=== PATIENT | female | born 1995 | race Two or more races ===

== ENCOUNTER 2018-12-21 11:34 | Emergency (ER) | payer MEDICAID ==
[~2018-12-21] VITALS: Ht 167.6 cm; Wt 89.8 kg
[2018-12-21 12:27] LABS: Urine Amorphous Crystal FEW /hpf (None Seen); Urine Bacteria FEW /hpf (None Seen); Urine Blood Negative /uL (Negative); Urine Mucus FEW (None Seen); Urine Specific Gravity 1.031 (1.001-1.035); Urine WBC 12 /hpf (0 - 5)
[2018-12-21 13:22] LABS: Basophils # (auto) 0 uL; Basophils % (auto) 0.4 % (0.0-2.0); Eosinophils # (auto) 0.1 uL; Eosinophils % (auto) 2.3 % (0.0-7.0); Hematocrit 37.5 % (36.0-46.0); Hemoglobin 12.5 g/dL (12.2-16.2); Lymphocytes # (auto) 2.4 uL; Lymphocytes % (auto) 40.1 % (10.0-50.0); Mean Corpuscular Hemoglobin 30.3 pg (28.0-32.0); Mean Corpuscular Hgb Conc. 33.4 g/dL (32.0-36.0); Mean Corpuscular Volume 90.9 fL (80.0-100.0); Monocytes # (auto) 0.6 uL; Monocytes % (auto) 9.8 % (0.0-12.0); Neutrophils # (auto) 2.8 uL; Neutrophils % (auto) 47.4 % (37.0-80.0); Nucleated Red Blood Cells % 0.1 %; Platelet Count (auto) 184 10^3/uL (140-450); Red Blood Cells 4.13 10^6/uL (4.0-5.20); Red Cell Distribution Width 13.3 % (11.8-14.3)
[2018-12-21] MEDS ORDERED: LIDOCAINE 1% HCL (LOCAL ANESTH.) INJ 20ML MDV ONE (13:29)
[2018-12-21] MEDS ORDERED: LIDOCAINE 1% HCL (LOCAL ANESTH.) INJ 20ML MDV ID ONE (13:30)
[2018-12-21 13:57] LABS: Albumin 3.7 g/dL (3.4-5.0); BUN/Creatinine Ratio 13.1; Calcium 8.4 mg/dL (8.5-10.1); Potassium 4.3 mmol/L (3.5-5.1)
[2018-12-21 14:00] VITALS: BP 121/70
[2018-12-21 14:00] LABS: Bilirubin, Total 0.3 mg/dL (0.2-1.0)
== END 2018-12-21 14:27 | disposition home or self-care (01) ==
LOC: ER 11:40
DX: L02.212 Cutaneous abscess of back [any part, except buttock and flank] (principal)
CPT/HCPCS: 10160; 36415; 80053; 81001; 81025; 85025; 99284; J2001; 10060

== ENCOUNTER 2018-12-22 21:14 | Emergency (ER) | payer MEDICAID ==
[~2018-12-22] VITALS: Ht 167.6 cm; Wt 89.8 kg
[2018-12-23 04:53] VITALS: BP 148/95
== END 2018-12-23 05:49 | disposition home or self-care (01) ==
LOC: ER 21:22
DX: R51 Headache (principal)
CPT/HCPCS: 70450

== ENCOUNTER 2019-03-02 12:59 | Emergency (ER) | payer MEDICAID ==
[2019-03-02 13:39] LABS: Basophils # (auto) 0 uL; Basophils % (auto) 0.3 % (0.0-2.0); Eosinophils # (auto) 0.1 uL; Hemoglobin 13.6 g/dL (12.2-16.2); Lymphocytes # (auto) 2.3 uL; Lymphocytes % (auto) 34.7 % (10.0-50.0); Mean Corpuscular Hemoglobin 30.8 pg (28.0-32.0); Mean Corpuscular Hgb Conc. 34.8 g/dL (32.0-36.0); Mean Corpuscular Volume 88.3 fL (80.0-100.0); Monocytes # (auto) 0.6 uL; Monocytes % (auto) 8.8 % (0.0-12.0); Neutrophils # (auto) 3.6 uL; Neutrophils % (auto) 54.2 % (37.0-80.0); Platelet Count (auto) 203 10^3/uL (140-450); Red Blood Cells 4.42 10^6/uL (4.0-5.20); Red Cell Distribution Width 13.2 % (11.8-14.3); White Blood Cell 6.6 10^3/uL (4.4-10.8)
[2019-03-02 13:53] LABS: Urine Bacteria FEW /hpf (None Seen); Urine Blood 3+ /uL (Negative); Urine Budding Yeast OCCASIONAL /hpf (None Seen); Urine Mucus FEW (None Seen); Urine Specific Gravity 1.024 (1.001-1.035); Urine WBC 11 /hpf (0 - 5)
[2019-03-02 13:59] LABS: Calcium 8.6 mg/dL (8.5-10.1)
[2019-03-02 14:03] LABS: Bilirubin, Total 0.2 mg/dL (0.2-1.0)
[2019-03-02 14:42] VITALS: BP 110/75
== END 2019-03-02 14:45 | disposition home or self-care (01) ==
LOC: ER 13:02
DX: N39.0 Urinary tract infection, site not specified (principal)
CPT/HCPCS: 36415; 80053; 81001; 85025

== ENCOUNTER 2019-05-14 08:53 | Emergency (ER) | payer MEDICAID ==
[~2019-05-14] VITALS: Ht 167.6 cm; Wt 95.3 kg
[2019-05-14 11:13] LABS: Basophils # (auto) 0 uL; Basophils % (auto) 0.4 % (0.0-2.0); Eosinophils # (auto) 0.1 uL; Eosinophils % (auto) 0.9 % (0.0-7.0); Hemoglobin 13.5 g/dL (12.2-16.2); Lymphocytes # (auto) 1.7 uL; Lymphocytes % (auto) 27.8 % (10.0-50.0); Mean Corpuscular Hemoglobin 31.1 pg (28.0-32.0); Mean Corpuscular Hgb Conc. 33.6 g/dL (32.0-36.0); Mean Corpuscular Volume 92.3 fL (80.0-100.0); Monocytes # (auto) 0.5 uL; Monocytes % (auto) 7.5 % (0.0-12.0); Neutrophils # (auto) 3.8 uL; Neutrophils % (auto) 63.4 % (37.0-80.0); Nucleated Red Blood Cells % 0.1 %; Platelet Count (auto) 192 10^3/uL (140-450); Red Blood Cells 4.34 10^6/uL (4.0-5.20); Red Cell Distribution Width 13.7 % (11.8-14.3); White Blood Cell 6.1 10^3/uL (4.4-10.8)
[2019-05-14 13:05] VITALS: BP 127/73
== END 2019-05-14 13:12 | disposition home or self-care (01) ==
LOC: ER 08:53
DX: O26.891 Other specified pregnancy related conditions, first trimester (principal); R10.2 Pelvic and perineal pain; Z3A.01 Less than 8 weeks gestation of pregnancy
CPT/HCPCS: 36415; 76801; 81002; 81025; 84702; 85025

== ENCOUNTER 2019-11-26 11:15 | Observation (INO) | payer MEDICAID ==
[2019-11-26 14:45] LABS: Albumin 2.7 g/dL (3.4-5.0); Calcium 8.3 mg/dL (8.5-10.1); Potassium 3.9 mmol/L (3.5-5.1)
[2019-11-26 14:49] LABS: BUN/Creatinine Ratio 8.8; Bilirubin, Total 0.4 mg/dL (0.2-1.0); Total Protein 6.7 g/dL (6.4-8.2)
[2019-11-26 14:53] LABS: Urine Bacteria None Seen /hpf (None Seen); Urine WBC None Seen /hpf (0 - 5)
[2019-11-26 14:57] LABS: Basophils # (auto) 0 10 ^3/uL (0-0.2); Basophils % (auto) 0.2 % (0.0-2.0); Eosinophils # (auto) 0.1 10 ^3/uL (0-0.8); Eosinophils % (auto) 0.9 % (0.0-7.0); Hematocrit 35.6 % (36.0-46.0); Hemoglobin 11.7 g/dL (12.2-16.2); Lymphocytes # (auto) 1.2 10 ^3/uL (0.4-5.4); Lymphocytes % (auto) 14.8 % (10.0-50.0); Mean Corpuscular Hemoglobin 30.8 pg (28.0-32.0); Mean Corpuscular Hgb Conc. 32.9 g/dL (32.0-36.0); Mean Corpuscular Volume 93.6 fL (80.0-100.0); Monocytes # (auto) 0.6 10 ^3/uL (0-1.3); Monocytes % (auto) 7.3 % (0.0-12.0); Neutrophils # (auto) 6.1 10 ^3/uL (1.6-8.6); Neutrophils % (auto) 76.8 % (37.0-80.0); Nucleated Red Blood Cells % 0.1 %; Platelet Count (auto) 198 10^3/uL (140-450); Red Cell Distribution Width 12.7 % (11.8-14.3); White Blood Cell 7.9 10^3/uL (4.4-10.8)
[2019-11-26 14:58] LABS: INR 0.93 (0.9-1.15); Partial Thromboplastin Time 28.8 sec (23.0-31.2)
[2019-11-26 16:27] LABS: Urine Specific Gravity 1.005 (1.001-1.035)
[2019-11-26 16:28] LABS: Urine Blood Negative /uL (Negative)
== END 2019-11-26 16:43 | disposition home or self-care (01) ==
LOC: LDRP 11:15
PROVIDERS: ADMIT Obstetrics & Gynecology; ATTEND Obstetrics & Gynecology
DX: O13.3 Gestational [pregnancy-induced] hypertension without significant proteinuria, third trimester (principal); Z3A.34 34 weeks gestation of pregnancy
CPT/HCPCS: 36415; 59025; 76805; 80053; 81001; 81002; 84550; 85025; 85610; 85730; G0378

== ENCOUNTER 2019-11-28 09:00 | Observation (INO) | payer MEDICAID ==
[2019-11-28] MEDS ORDERED: PREN-96 PO (09:41)
[2019-11-28 10:01] LABS: Protein, Urine 20.8 mg/dL (0.0-11.9)
== END 2019-11-28 11:10 | disposition home or self-care (01) ==
LOC: LDRP 09:00
PROVIDERS: ADMIT Specialist; ATTEND Specialist
DX: O13.3 Gestational [pregnancy-induced] hypertension without significant proteinuria, third trimester (principal); Z90.5 Acquired absence of kidney; Z3A.34 34 weeks gestation of pregnancy
CPT/HCPCS: 59025; 81002; 82570; 84156; G0378

== ENCOUNTER 2019-11-30 19:54 | Observation (INO) | payer MEDICAID ==
[~2019-11-30 19:54] MED LIST: PREN-96 PO
[2019-11-30 22:28] LABS: Basophils # (auto) 0 10 ^3/uL (0-0.2); Basophils % (auto) 0.4 % (0.0-2.0); Eosinophils # (auto) 0.1 10 ^3/uL (0-0.8); Hematocrit 33.6 % (36.0-46.0); Hemoglobin 11.3 g/dL (12.2-16.2); Lymphocytes # (auto) 1.8 10 ^3/uL (0.4-5.4); Lymphocytes % (auto) 22.1 % (10.0-50.0); Mean Corpuscular Hgb Conc. 33.6 g/dL (32.0-36.0); Mean Corpuscular Volume 92.4 fL (80.0-100.0); Monocytes # (auto) 0.8 10 ^3/uL (0-1.3); Monocytes % (auto) 10.2 % (0.0-12.0); Neutrophils # (auto) 5.5 10 ^3/uL (1.6-8.6); Neutrophils % (auto) 66.3 % (37.0-80.0); Platelet Count (auto) 204 10^3/uL (140-450); Red Blood Cells 3.64 10^6/uL (4.0-5.20); Red Cell Distribution Width 12.4 % (11.8-14.3); White Blood Cell 8.2 10^3/uL (4.4-10.8)
[2019-11-30 22:43] LABS: Potassium 3.6 mmol/L (3.5-5.1)
[2019-11-30 22:48] LABS: Urine Bacteria NONE SEEN /hpf (None Seen); Urine Blood Negative /uL (Negative); Urine Mucus FEW (None Seen); Urine Specific Gravity 1.024 (1.001-1.035); Urine WBC 16 /hpf (0 - 5)
[2019-11-30 22:52] LABS: Albumin 2.6 g/dL (3.4-5.0); BUN/Creatinine Ratio 10.5; Bilirubin, Total 0.2 mg/dL (0.2-1.0); Calcium 8.5 mg/dL (8.5-10.1); Total Protein 6.6 g/dL (6.4-8.2); Uric Acid 3.6 mg/dL (2.6-6.0)
[2019-11-30 22:59] LABS: INR 0.93 (0.9-1.15); Partial Thromboplastin Time 26.5 sec (23.0-31.2)
== END 2019-11-30 23:38 | disposition home or self-care (01) ==
LOC: LDRP 19:54
PROVIDERS: ADMIT Specialist; ATTEND Specialist
DX: O13.3 Gestational [pregnancy-induced] hypertension without significant proteinuria, third trimester (principal); Z3A.35 35 weeks gestation of pregnancy
CPT/HCPCS: 36415; 59025; 76818; 80053; 81001; 81002; 84550; 85025; 85379; 85384; 85610; 85730; G0378

== ENCOUNTER 2019-12-03 09:52 | Observation (INO) | payer MEDICAID ==
[2019-12-03 11:45] LABS: Basophils # (auto) 0 10 ^3/uL (0-0.2); Basophils % (auto) 0.3 % (0.0-2.0); Eosinophils # (auto) 0 10 ^3/uL (0-0.8); Eosinophils % (auto) 0.3 % (0.0-7.0); Hematocrit 35.8 % (36.0-46.0); Hemoglobin 12.3 g/dL (12.2-16.2); Lymphocytes # (auto) 1.5 10 ^3/uL (0.4-5.4); Lymphocytes % (auto) 16.4 % (10.0-50.0); Mean Corpuscular Hemoglobin 31.6 pg (28.0-32.0); Mean Corpuscular Hgb Conc. 34.4 g/dL (32.0-36.0); Mean Corpuscular Volume 91.7 fL (80.0-100.0); Monocytes # (auto) 0.5 10 ^3/uL (0-1.3); Monocytes % (auto) 5.9 % (0.0-12.0); Neutrophils # (auto) 6.8 10 ^3/uL (1.6-8.6); Neutrophils % (auto) 77.1 % (37.0-80.0); Platelet Count (auto) 205 10^3/uL (140-450); Red Cell Distribution Width 12.6 % (11.8-14.3); White Blood Cell 8.9 10^3/uL (4.4-10.8)
[2019-12-03 12:09] LABS: Albumin 2.8 g/dL (3.4-5.0); Calcium 8.4 mg/dL (8.5-10.1); Potassium 3.8 mmol/L (3.5-5.1)
[2019-12-03 12:12] LABS: BUN/Creatinine Ratio 7.6; Bilirubin, Total 0.4 mg/dL (0.2-1.0); Total Protein 7.2 g/dL (6.4-8.2)
[2019-12-04 05:11] LABS: RPR Non Reactive (Non Reactive)
== END 2019-12-03 12:55 | disposition home or self-care (01) ==
LOC: LDRP 09:52
PROVIDERS: ADMIT Specialist; ATTEND Specialist
DX: O13.3 Gestational [pregnancy-induced] hypertension without significant proteinuria, third trimester (principal); Z3A.35 35 weeks gestation of pregnancy
CPT/HCPCS: 36415; 59025; 76818; 80053; 81002; 85025; 86592; G0378

== ENCOUNTER 2019-12-06 11:55 | Observation (INO) | payer MEDICAID ==
[2019-12-06 12:54] LABS: Basophils # (auto) 0 10 ^3/uL (0-0.2); Basophils % (auto) 0.1 % (0.0-2.0); Eosinophils # (auto) 0 10 ^3/uL (0-0.8); Eosinophils % (auto) 0.4 % (0.0-7.0); Hematocrit 34.1 % (36.0-46.0); Hemoglobin 11.5 g/dL (12.2-16.2); Lymphocytes # (auto) 1.5 10 ^3/uL (0.4-5.4); Mean Corpuscular Hemoglobin 31.3 pg (28.0-32.0); Mean Corpuscular Hgb Conc. 33.7 g/dL (32.0-36.0); Mean Corpuscular Volume 92.8 fL (80.0-100.0); Monocytes # (auto) 0.5 10 ^3/uL (0-1.3); Monocytes % (auto) 6.5 % (0.0-12.0); Neutrophils # (auto) 6.1 10 ^3/uL (1.6-8.6); Platelet Count (auto) 192 10^3/uL (140-450); Red Blood Cells 3.68 10^6/uL (4.0-5.20); Red Cell Distribution Width 12.6 % (11.8-14.3); White Blood Cell 8.1 10^3/uL (4.4-10.8)
[2019-12-06 13:00] LABS: Urine Bacteria NONE SEEN /hpf (None Seen); Urine Blood Negative /uL (Negative); Urine Mucus FEW (None Seen); Urine Specific Gravity 1.015 (1.001-1.035); Urine WBC 2 /hpf (0 - 5)
[2019-12-06 13:09] LABS: INR 0.94 (0.9-1.15); Partial Thromboplastin Time 27.1 sec (23.0-31.2)
[2019-12-06 13:10] LABS: Potassium 3.9 mmol/L (3.5-5.1)
[2019-12-06 13:14] LABS: Protein, Urine 26.1 mg/dL (0.0-11.9)
[2019-12-06 13:19] LABS: Albumin 2.6 g/dL (3.4-5.0); BUN/Creatinine Ratio 10.7; Bilirubin, Total 0.3 mg/dL (0.2-1.0); Calcium 8.2 mg/dL (8.5-10.1); Total Protein 6.7 g/dL (6.4-8.2); Uric Acid 3.7 mg/dL (2.6-6.0)
== END 2019-12-06 14:00 | disposition home or self-care (01) ==
LOC: LDRP 11:55
PROVIDERS: ADMIT Specialist; ATTEND Specialist
DX: O13.3 Gestational [pregnancy-induced] hypertension without significant proteinuria, third trimester (principal); Z3A.35 35 weeks gestation of pregnancy
CPT/HCPCS: 36415; 59025; 76818; 80053; 81001; 81002; 82570; 84156; 84550; 85025; 85362; 85379; 85610; 85730; G0378

== ENCOUNTER 2019-12-07 23:05 | Observation (INO) | payer MEDICAID | END 2019-12-08 00:44 | disposition home or self-care (01) | LOC: LDRP 23:05 | PROVIDERS: ADMIT Specialist; ATTEND Specialist | DX: O42.913 Preterm premature rupture of membranes, unspecified as to length of time between rupture and onset of labor, third trimester (principal); Z3A.36 36 weeks gestation of pregnancy | CPT/HCPCS: 59025; 81002; 84112; G0378; Q0114 ==

== ENCOUNTER 2019-12-08 08:13 | Observation (INO) | payer MEDICAID | END 2019-12-08 09:35 | disposition home or self-care (01) | LOC: LDRP 08:13 | PROVIDERS: ADMIT Obstetrics & Gynecology; ATTEND Obstetrics & Gynecology | DX: O42.913 Preterm premature rupture of membranes, unspecified as to length of time between rupture and onset of labor, third trimester (principal); Z3A.36 36 weeks gestation of pregnancy | CPT/HCPCS: 59025; 76818; 81002; G0378 ==

== ENCOUNTER 2019-12-11 08:10 | Observation (INO) | payer MEDICAID ==
[~2019-12-11] VITALS: Ht 167.6 cm; Wt 99.8 kg
[2019-12-11 09:02] LABS: Protein, Urine 17.7 mg/dL (0.0-11.9)
[2019-12-11 09:06] LABS: 24 Hr. Total Protein, Urine 371.7 mg/24 Hr (<149.1)
== END 2019-12-11 09:25 | disposition home or self-care (01) ==
LOC: LDRP 08:10
PROVIDERS: ADMIT Specialist; ATTEND Specialist
DX: O13.3 Gestational [pregnancy-induced] hypertension without significant proteinuria, third trimester (principal); O62.9 Abnormality of forces of labor, unspecified; O26.893 Other specified pregnancy related conditions, third trimester; Q60.0 Renal agenesis, unilateral; Z3A.36 36 weeks gestation of pregnancy
CPT/HCPCS: 59025; 76818; 81002; 82570; 84156; G0378

== ENCOUNTER 2019-12-15 10:06 | Observation (INO) | payer MEDICAID | END 2019-12-15 11:50 | disposition home or self-care (01) | LOC: LDRP 10:06 | PROVIDERS: ADMIT Obstetrics & Gynecology; ATTEND Obstetrics & Gynecology | DX: O13.3 Gestational [pregnancy-induced] hypertension without significant proteinuria, third trimester (principal); Z90.5 Acquired absence of kidney; Z91.040 Latex allergy status; Z3A.37 37 weeks gestation of pregnancy | CPT/HCPCS: 59025; 76818; 81002; G0378 ==

== ENCOUNTER 2019-12-18 08:08 | Observation (INO) | payer MEDICAID ==
[2019-12-18 10:12] LABS: Protein, Urine 14.8 mg/dL (0.0-11.9)
[2019-12-18 10:15] LABS: Urine Bacteria NONE SEEN /hpf (None Seen); Urine Blood Negative /uL (Negative); Urine Specific Gravity 1.011 (1.001-1.035); Urine WBC 4 /hpf (0 - 5)
[2019-12-18 10:26] LABS: 24 Hr. Total Protein, Urine 362.6 mg/24 Hr (<149.1)
[2019-12-18 10:29] LABS: Basophils # (auto) 0 10 ^3/uL (0-0.2); Basophils % (auto) 0.2 % (0.0-2.0); Eosinophils # (auto) 0 10 ^3/uL (0-0.8); Eosinophils % (auto) 0.5 % (0.0-7.0); Hemoglobin 11.3 g/dL (12.2-16.2); Lymphocytes # (auto) 1.6 10 ^3/uL (0.4-5.4); Mean Corpuscular Hemoglobin 31.8 pg (28.0-32.0); Mean Corpuscular Hgb Conc. 34.2 g/dL (32.0-36.0); Monocytes # (auto) 0.5 10 ^3/uL (0-1.3); Monocytes % (auto) 5.7 % (0.0-12.0); Neutrophils # (auto) 5.9 10 ^3/uL (1.6-8.6); Neutrophils % (auto) 73.6 % (37.0-80.0); Nucleated Red Blood Cells % 0.1 %; Platelet Count (auto) 181 10^3/uL (140-450); Red Blood Cells 3.55 10^6/uL (4.0-5.20)
[2019-12-18 10:46] LABS: INR 0.92 (0.9-1.15); Partial Thromboplastin Time 26.2 sec (23.0-31.2)
[2019-12-18 10:49] LABS: Albumin 2.4 g/dL (3.4-5.0); Calcium 8.3 mg/dL (8.5-10.1); Potassium 3.6 mmol/L (3.5-5.1)
[2019-12-18 10:55] LABS: BUN/Creatinine Ratio 9.3; Bilirubin, Total 0.2 mg/dL (0.2-1.0); Total Protein 6.4 g/dL (6.4-8.2)
[2019-12-18 11:33] LABS: Creatinine Clearance, Urine 116.95 mL/min (75-115)
== END 2019-12-18 11:00 | disposition home or self-care (01) ==
LOC: LDRP 08:08
PROVIDERS: ADMIT Obstetrics & Gynecology; ATTEND Obstetrics & Gynecology
DX: O13.3 Gestational [pregnancy-induced] hypertension without significant proteinuria, third trimester (principal); O26.893 Other specified pregnancy related conditions, third trimester; N89.8 Other specified noninflammatory disorders of vagina; H53.8 Other visual disturbances; Z3A.37 37 weeks gestation of pregnancy
CPT/HCPCS: 36415; 59025; 76818; 80053; 81001; 81002; 82575; 84156; 84550; 85025; 85610; 85730; G0378

== ENCOUNTER 2019-12-22 16:16 | Observation (INO) | payer MEDICAID | END 2019-12-22 17:10 | disposition home or self-care (01) | LOC: LDRP 16:16 | PROVIDERS: ADMIT Obstetrics & Gynecology; ATTEND Obstetrics & Gynecology | DX: O13.3 Gestational [pregnancy-induced] hypertension without significant proteinuria, third trimester (principal); Z90.5 Acquired absence of kidney; Z3A.38 38 weeks gestation of pregnancy | CPT/HCPCS: 59025; 76818; 81002; G0378 ==

== ENCOUNTER 2019-12-25 08:14 | Observation (INO) | payer MEDICAID ==
[2019-12-25 09:15] LABS: Basophils # (auto) 0 10 ^3/uL (0-0.2); Basophils % (auto) 0.3 % (0.0-2.0); Eosinophils # (auto) 0.1 10 ^3/uL (0-0.8); Eosinophils % (auto) 0.6 % (0.0-7.0); Hemoglobin 11.2 g/dL (12.2-16.2); Lymphocytes # (auto) 1.7 10 ^3/uL (0.4-5.4); Mean Corpuscular Hemoglobin 31.2 pg (28.0-32.0); Mean Corpuscular Hgb Conc. 33.8 g/dL (32.0-36.0); Mean Corpuscular Volume 92.2 fL (80.0-100.0); Monocytes # (auto) 0.6 10 ^3/uL (0-1.3); Monocytes % (auto) 6.9 % (0.0-12.0); Neutrophils # (auto) 6.4 10 ^3/uL (1.6-8.6); Neutrophils % (auto) 73.2 % (37.0-80.0); Nucleated Red Blood Cells % 0.1 %; Platelet Count (auto) 184 10^3/uL (140-450); Red Blood Cells 3.58 10^6/uL (4.0-5.20); Red Cell Distribution Width 12.8 % (11.8-14.3); White Blood Cell 8.8 10^3/uL (4.4-10.8)
[2019-12-25 09:31] LABS: Albumin 2.7 g/dL (3.4-5.0); Calcium 8.3 mg/dL (8.5-10.1); Potassium 3.8 mmol/L (3.5-5.1)
[2019-12-25 09:34] LABS: BUN/Creatinine Ratio 12.7; Bilirubin, Total 0.3 mg/dL (0.2-1.0); Total Protein 6.9 g/dL (6.4-8.2); Uric Acid 3.6 mg/dL (2.6-6.0)
[2019-12-25 09:41] LABS: INR 0.92 (0.9-1.15); Partial Thromboplastin Time 26.5 sec (23.0-31.2)
[2019-12-25 09:50] LABS: Protein, Urine 39.5 mg/dL (0.0-11.9)
== END 2019-12-25 10:15 | disposition home or self-care (01) ==
LOC: LDRP 08:14
PROVIDERS: ADMIT Obstetrics & Gynecology; ATTEND Obstetrics & Gynecology
DX: O13.3 Gestational [pregnancy-induced] hypertension without significant proteinuria, third trimester (principal); O26.833 Pregnancy related renal disease, third trimester; Z3A.38 38 weeks gestation of pregnancy
CPT/HCPCS: 36415; 59025; 76818; 80053; 81002; 82570; 84156; 84550; 85025; 85610; 85730; G0378

== ENCOUNTER 2019-12-29 08:09 | Observation (INO) | payer MEDICAID ==
[~2019-12-29] VITALS: Ht 167.6 cm; Wt 103.4 kg
[2019-12-29 10:11] LABS: Protein, Urine 24.3 mg/dL (0.0-11.9)
[2019-12-29 10:12] LABS: 24 Hr. Total Protein, Urine 291.6 mg/24 Hr (<149.1)
[2019-12-29 10:54] LABS: Creatinine Clearance, Urine 99.6 mL/min (75-115)
== END 2019-12-29 11:15 | disposition home or self-care (01) ==
LOC: LDRP 08:09
PROVIDERS: ADMIT Specialist; ATTEND Specialist
DX: O13.3 Gestational [pregnancy-induced] hypertension without significant proteinuria, third trimester (principal); O26.833 Pregnancy related renal disease, third trimester; Z3A.39 39 weeks gestation of pregnancy; Z79.899 Other long term (current) drug therapy
CPT/HCPCS: 59025; 76818; 81002; 82570; 82575; 82948; 84156; G0378

== ENCOUNTER 2020-01-01 07:35 | Inpatient (IN) | payer MEDICAID ==
[~2020-01-01] VITALS: Ht 160 cm; Wt 103.4 kg
[2020-01-01] MEDS ORDERED: LIDOCAINE 2%HCL (LOCAL ANESTH.) INJ 20ML MDV IJ PRN (09:00)
[2020-01-01] MEDS ORDERED: BUTORPHANOL TARTRATE 2 MG/1 ML VIAL IV PRN (09:00)
[2020-01-01] MEDS ORDERED: PHISODERM TOP SOLN 240ML BTL TOP PRN (09:00)
[2020-01-01] MEDS ORDERED: PROMETHAZINE HCL 25 MG/ML 1ML IV PRN (09:00)
[2020-01-01] MEDS ORDERED: miSOPROStol 100 mcg TAB PO PRN (09:00)
[2020-01-01] MEDS: LACTATED RINGER'S 1,000 ML IV SCH ×3 (09:28→18:31)
[2020-01-01] MEDS ORDERED: miSOPROStol 50 MCG per PRE-CUT 1/2 TAB ONE ×2 (10:08→16:16)
[2020-01-01 10:10] LABS: Basophils # (auto) 0 10 ^3/uL (0-0.2); Basophils % (auto) 0.3 % (0.0-2.0); Eosinophils # (auto) 0 10 ^3/uL (0-0.8); Eosinophils % (auto) 0.5 % (0.0-7.0); Hematocrit 34.2 % (36.0-46.0); Hemoglobin 11.6 g/dL (12.2-16.2); Lymphocytes % (auto) 20.4 % (10.0-50.0); Mean Corpuscular Hemoglobin 31.1 pg (28.0-32.0); Mean Corpuscular Hgb Conc. 33.9 g/dL (32.0-36.0); Mean Corpuscular Volume 91.9 fL (80.0-100.0); Monocytes # (auto) 0.7 10 ^3/uL (0-1.3); Monocytes % (auto) 6.7 % (0.0-12.0); Neutrophils % (auto) 72.1 % (37.0-80.0); Nucleated Red Blood Cells % 0.1 %; Platelet Count (auto) 199 10^3/uL (140-450); Red Blood Cells 3.72 10^6/uL (4.0-5.20); Red Cell Distribution Width 12.7 % (11.8-14.3); White Blood Cell 9.8 10^3/uL (4.4-10.8)
[2020-01-01 10:12] LABS: Urine Bacteria NONE SEEN /hpf (None Seen); Urine Blood 1+ /uL (Negative); Urine Specific Gravity 1.008 (1.001-1.035); Urine WBC 2 /hpf (0 - 5)
[2020-01-01 10:36] LABS: Calcium 8.4 mg/dL (8.5-10.1)
[2020-01-01 10:41] LABS: Albumin 2.7 g/dL (3.4-5.0); BUN/Creatinine Ratio 13.3; Bilirubin, Total 0.2 mg/dL (0.2-1.0); Total Protein 7.2 g/dL (6.4-8.2); Uric Acid 3.9 mg/dL (2.6-6.0)
[2020-01-01 10:44] LABS: Alcohol, Urine < 3.0 mg/dL (0-10); Amphetamine Screen, Urine NEGATIVE (NEGATIVE); Barbiturate Scree,Urine NEGATIVE (NEGATIVE); Benzodiazephine Screen, Urine NEGATIVE (NEGATIVE); Cannabinoid Screen, Urine NEGATIVE (NEGATIVE); Cocaine Screen, Urine NEGATIVE (NEGATIVE); Opiate Scree,Urine NEGATIVE (NEGATIVE); Phencyclidine Screen, Urine NEGATIVE (NEGATIVE)
[2020-01-01 10:48] LABS: INR 0.91 (0.9-1.15); Partial Thromboplastin Time 27.1 sec (23.0-31.2)
[2020-01-01] MEDS ORDERED: LACT. RINGERS/OXYTOCIN 20UNITS 1,000 ML IV SCH (17:00)
[2020-01-01] MEDS ORDERED: TERBUTALINE SULFATE 1 MG/ML 1ML VIAL SC PRN (17:00)
[2020-01-01] MEDS ORDERED: TERBUTALINE SULFATE 1 MG/ML 1ML VIAL SC ONE (17:08)
[2020-01-01] MEDS ORDERED: fentaNYL CITRATE 100 MCG/2 ML VL IV ONE (17:30)
[2020-01-01] MEDS ORDERED: LACTATED RINGER'S 1,000 ML IV ONE (17:30)
[2020-01-01] MEDS ORDERED: NALOXONE HCL 0.4 MG/ML VIAL IV ONE (17:30)
[2020-01-01] MEDS ORDERED: ePHEDrine SULFATE 50 MG/ML AMP IV ONE (17:30)
[2020-01-01] MEDS ORDERED: ROPIVACAINE HCL 100 ML EPI SCH (17:30)
[2020-01-01] MEDS: ceFAZolin 1GM/50ML 50 ML IV SCH (19:27)
[2020-01-01] MEDS: DERMOPLAST 60ML BOTTLE TOP PRN (19:28)
[2020-01-01] MEDS: WITCH HAZEL-GLYCERIN PAD TOP PRN (19:29)
[2020-01-02] MEDS ORDERED: fentaNYL 400mCg/200ml W ROPIVA 200 ML EPI SCH ×2 (01:30→01:45)
[2020-01-02] MEDS ORDERED: NALOXONE HCL 0.4 MG/ML VIAL IV ONE (01:45)
[2020-01-02] MEDS ORDERED: ePHEDrine SULFATE 50 MG/ML AMP IV ONE (01:45)
[2020-01-02] MEDS ORDERED: LIDOCAINE HCL 2 %PF INJ 10ML AMP IJ ONE (03:15)
[2020-01-02] MEDS ORDERED: fentaNYL CITRATE 100 MCG/2 ML VL IV ONE (03:15)
[2020-01-02] MEDS ORDERED: ROPIVACAINE HCL 100 ML EPI SCH (03:15)
[2020-01-02] MEDS: ceFAZolin 1GM/50ML 50 ML IV SCH ×3 (03:27→11:29)
[2020-01-02 06:06] LABS: RPR Non Reactive (Non Reactive)
[2020-01-02] MEDS: LACTATED RINGER'S 1,000 ML IV SCH (06:49)
[2020-01-02] MEDS: IBUPROFEN 600 MG TAB PO PRN ×2 (11:12→19:05)
--- NOTE | 2020-01-02 14:12 | NUR ---
Report received from Becky Esteban on stable patient; care transferred at this time.
[2020-01-02 16:13] VITALS: BP 110/63
[2020-01-02 19:00] VITALS: BP 124/75
[2020-01-02 23:00] VITALS: BP 131/69
[2020-01-03 03:00] VITALS: BP 124/85
--- NOTE | 2020-01-03 03:20 | NUR ---
Pt c/o having sore nipples, lanolin cream given and educated on how to use it. Addendum: 01/03/20 at 0337 by SARITA LIM RN RN Amended: Links added.
[2020-01-03] MEDS: IBUPROFEN 600 MG TAB PO PRN ×3 (05:31→23:33)
[2020-01-03 07:00] VITALS: BP 128/82
--- NOTE | 2020-01-03 07:19 | NUR ---
IV removal IV DC'd with clean sterile technique, catheter fully intact. Pressure dressing applied to site. Patient tolerated well. Addendum: 01/03/20 at 0720 by JOCELYN JAIN RN Amended: Links added.
[2020-01-03] MEDS ORDERED: DOCUSATE CALCIUM 240 MG CAP PO SCH (10:00)
[2020-01-03 11:00] VITALS: BP 114/70
[2020-01-03 15:00] VITALS: BP 124/62
[2020-01-03 18:30] VITALS: BP 133/77
[2020-01-03 23:30] VITALS: BP 138/85
[2020-01-04 03:30] VITALS: BP 133/81
[2020-01-04 06:35] VITALS: BP 126/75
[2020-01-04] MEDS: IBUPROFEN 600 MG TAB PO PRN (07:35)
--- NOTE | 2020-01-04 08:30 | NUR ---
Discharge: Discharge instructions given as ordered. Pt encouraged to follow up with [facility] as instructed. All questions and concerns addressed. Patient verbalized understanding. Medication reconciliation completed and copy given to patient. Patient encouraged to prepare to depart unit.
[2020-01-04] MEDS: WITCH HAZEL-GLYCERIN PAD TOP PRN (08:33)
[2020-01-04] MEDS: DERMOPLAST 60ML BOTTLE TOP PRN (08:33)
--- NOTE | 2020-01-04 08:40 | NUR ---
Discharge: Patient taken to vehicle via wheelchair with all personal belongings, accompanied by staff and family member. No distress noted at time of departure, no adverse changes in status since initial assessment.
== END 2020-01-04 08:40 | disposition home or self-care (01) | DRG 560 ==
LOC: OBSVTOIN 07:35 → LDRP 07:35
PROVIDERS: ADMIT Specialist; ATTEND Specialist
PROC: 3E0R3BZ Introduction of Anesthetic Agent into Spinal Canal, Percutaneous Approach (ICD-10-PCS; principal; 2020-01-01)
PROC: 00HU33Z Insertion of Infusion Device into Spinal Canal, Percutaneous Approach (ICD-10-PCS; 2020-01-01)
PROC: 3E033VJ Introduction of Other Hormone into Peripheral Vein, Percutaneous Approach (ICD-10-PCS; 2020-01-01)
PROC: 10D07Z6 Extraction of Products of Conception, Vacuum, Via Natural or Artificial Opening (ICD-10-PCS; 2020-01-02)
PROC: 0W8NXZZ Division of Female Perineum, External Approach (ICD-10-PCS; 2020-01-02)
DX: O69.81X0 Labor and delivery complicated by cord around neck, without compression, not applicable or unspecified (principal); Z37.0 Single live birth; Z3A.39 39 weeks gestation of pregnancy
CPT/HCPCS: 36415; 59025; 59409; 62282; 80053; 80307; 81001; 84112; 84550; 85025; 85610; 85730; 86592; 86850; 86900; 86901; 94760; 94762; 96360; 96361; 96365; 96366; 96372; 96374; 96375; G0378; J0690; J2590

== ENCOUNTER 2022-06-29 12:15 | Observation (INO) | payer MEDICAID | END 2022-06-29 14:00 | disposition home or self-care (01) | LOC: UNDOADMOB 12:15 → LDRP 12:15 | PROVIDERS: ADMIT Obstetrics & Gynecology; ATTEND Obstetrics & Gynecology | DX: O26.892 Other specified pregnancy related conditions, second trimester (principal); R10.9 Unspecified abdominal pain; Z3A.26 26 weeks gestation of pregnancy | CPT/HCPCS: 59025; 76815; 81002; 94760; G0378 ==

== ENCOUNTER 2022-09-28 02:40 | Inpatient (IN) | payer MEDICAID ==
[~2022-09-28] VITALS: Ht 167.6 cm; Wt 95.7 kg
[2022-09-28] MEDS ORDERED: LACTATED RINGER'S 1,000 ML IV ONE (03:15)
[2022-09-28] MEDS ORDERED: LACT. RINGERS/OXYTOCIN 20UNITS 1,000 ML IV ONE (03:39)
[2022-09-28] MEDS ORDERED: DERMOPLAST 60ML BOTTLE TOP PRN (04:00)
[2022-09-28] MEDS ORDERED: ONDANSETRON ODT 4 MG TAB PO PRN (04:00)
[2022-09-28] MEDS ORDERED: LACT. RINGERS/OXYTOCIN 20UNITS 500 ML IV ONE ×2 (04:00→04:30)
[2022-09-28] MEDS ORDERED: PHISODERM TOP SOLN 240ML BTL TOP PRN (04:00)
[2022-09-28] MEDS ORDERED: LACTATED RINGER'S 1,000 ML IV SCH (04:00)
[2022-09-28] MEDS ORDERED: WITCH HAZEL-GLYCERIN PAD TOP PRN (04:00)
[2022-09-28] MEDS ORDERED: IBUPROFEN 600 MG TAB PO PRN (04:00)
[2022-09-28] MEDS ORDERED: ACETAMINOPHEN 325 MG TAB PO PRN (04:00)
[2022-09-28 05:07] LABS: Basophils # (auto) 0 10 ^3/uL (0-0.2); Eosinophils # (auto) 0 10 ^3/uL (0-0.8); Eosinophils % (auto) 0.2 % (0.0-7.0); Hemoglobin 9.4 g/dL (12.2-16.2); Mean Corpuscular Hemoglobin 25.1 pg (28.0-32.0); Nucleated Red Blood Cells % 0.1 %
[2022-09-28 05:10] LABS: Basophils % (auto) 0.1 % (0.0-2.0); Hematocrit 28.9 % (36.0-46.0); Lymphocytes # (auto) 0.8 10 ^3/uL (0.4-5.4); Lymphocytes % (auto) 8.1 % (10.0-50.0); Mean Corpuscular Hgb Conc. 32.4 g/dL (32.0-36.0); Mean Corpuscular Volume 77.5 fL (80.0-100.0); Monocytes # (auto) 0.5 10 ^3/uL (0-1.3); Monocytes % (auto) 5.1 % (0.0-12.0); Neutrophils # (auto) 8.8 10 ^3/uL (1.6-8.6); Neutrophils % (auto) 86.5 % (37.0-80.0); Red Blood Cells 3.73 10^6/uL (4.0-5.20); Red Cell Distribution Width 16.6 % (11.8-14.3); White Blood Cell 10.2 10^3/uL (4.4-10.8)
[2022-09-28 05:23] LABS: INR 0.92 (0.9-1.15)
[2022-09-28 05:34] LABS: Albumin 2.6 g/dL (3.4-5.0); Calcium 8.2 mg/dL (8.5-10.1); Potassium 3.6 mmol/L (3.5-5.1)
[2022-09-28 05:37] LABS: BUN/Creatinine Ratio 8.6 (10.0-20.0); Bilirubin, Total 0.2 mg/dL (0.2-1.0); Total Protein 6.9 g/dL (6.4-8.2)
[2022-09-28] MEDS ORDERED: miSOPROStol 100 mcg TAB SL PRN (06:00)
[2022-09-28] MEDS ORDERED: METHYLERGONOVINE MALEATE 0.2 MG/ML AMP IM PRN (06:00)
[2022-09-28] MEDS ORDERED: miSOPROStol 100 mcg TAB PR PRN (06:00)
[2022-09-28 06:53] VITALS: BP 146/87
[2022-09-28] MEDS ORDERED: miSOPROStol 100 mcg TAB ONE (08:02)
[2022-09-28] MEDS ORDERED: METHYLERGONOVINE MALEATE 0.2 MG/ML AMP IM ONE (08:02)
[2022-09-28 10:35] VITALS: BP 136/85
[2022-09-28 10:54] VITALS: BP 131/76
[2022-09-28 15:00] VITALS: BP 128/74
[2022-09-28 18:32] VITALS: BP 137/79
[2022-09-28 22:58] VITALS: BP 128/75
[2022-09-29 02:35] LABS: Urine Bacteria MANY /hpf (None Seen); Urine Blood 3+ /uL (Negative); Urine Mucus FEW (None Seen); Urine Specific Gravity 1.012 (1.001-1.035); Urine WBC 4 /hpf (0 - 5)
[2022-09-29 02:39] LABS: Alcohol, Urine < 3.0 mg/dL (0-10); Amphetamine Screen, Urine NEGATIVE (NEGATIVE); Barbiturate Scree,Urine NEGATIVE (NEGATIVE); Benzodiazephine Screen, Urine NEGATIVE (NEGATIVE); Cannabinoid Screen, Urine NEGATIVE (NEGATIVE); Cocaine Screen, Urine NEGATIVE (NEGATIVE); Opiate Scree,Urine NEGATIVE (NEGATIVE); Phencyclidine Screen, Urine NEGATIVE (NEGATIVE)
[2022-09-29 03:18] VITALS: BP 130/79
[2022-09-29 07:07] LABS: RPR Non Reactive (Non Reactive); Rubella Antibodies, IgG 6.03 index (Immune >0.99)
[2022-09-29 07:17] VITALS: BP 117/69
[2022-09-29 07:20] LABS: Basophils # (auto) 0 10 ^3/uL (0-0.2); Basophils % (auto) 0.1 % (0.0-2.0); Eosinophils # (auto) 0 10 ^3/uL (0-0.8); Eosinophils % (auto) 0.1 % (0.0-7.0); Hemoglobin 8.9 g/dL (12.2-16.2); Mean Corpuscular Hemoglobin 24.9 pg (28.0-32.0); Neutrophils # (auto) 6.3 10 ^3/uL (1.6-8.6); Nucleated Red Blood Cells % 0.1 %; Red Blood Cells 3.59 10^6/uL (4.0-5.20)
[2022-09-29 07:23] LABS: Hematocrit 27.7 % (36.0-46.0); Lymphocytes # (auto) 1.5 10 ^3/uL (0.4-5.4); Lymphocytes % (auto) 17.6 % (10.0-50.0); Mean Corpuscular Hgb Conc. 32.3 g/dL (32.0-36.0); Mean Corpuscular Volume 77.1 fL (80.0-100.0); Monocytes # (auto) 0.9 10 ^3/uL (0-1.3); Monocytes % (auto) 10.4 % (0.0-12.0); Neutrophils % (auto) 71.8 % (37.0-80.0); Red Cell Distribution Width 16.7 % (11.8-14.3); White Blood Cell 8.7 10^3/uL (4.4-10.8)
== END 2022-09-29 11:30 | disposition home or self-care (01) | DRG 560 ==
LOC: LDRP 02:40 → OBSVTOIN 04:37
PROVIDERS: ADMIT Obstetrics & Gynecology; ATTEND Obstetrics & Gynecology
PROC: 10E0XZZ Delivery of Products of Conception, External Approach (ICD-10-PCS; principal; 2022-09-28)
DX: O80 Encounter for full-term uncomplicated delivery (principal); Z37.0 Single live birth; Z3A.39 39 weeks gestation of pregnancy
CPT/HCPCS: 36415; 59025; 59409; 80053; 80307; 81001; 81002; 85025; 85610; 85730; 86592; 86762; 86850; 86900; 86901; 87340; 94760; 96360; 96361; 96365; 96366; G0378; J2590